=== PATIENT | male | born 1955 | race Caucasian/White ===

== ENCOUNTER → 2019-05-03 | Day surgery (SDC) | payer BC ==
[2019-04-30 15:43] VITALS: BMI 29.4
[~2019-05-03] MED LIST: Lidocaine 1% PF 5 ML VIAL ONE; PROPOFOL 20 ML ONE; PROPOFOL 200 MG/20 ML VIAL ONE
[2019-05-03 10:55] LABS: #Eosinphils 0.3 thou/uL (0.0-0.7); #Lymphocytes 1.2 thou/uL (1.20-3.40); #Monocytes 0.5 thou/uL (0.11-0.59); #Neutrophils 3.9 thou/uL (1.40-6.50); %Basophils 0.8 % (0.0-1.0); %Lymphocytes 20.5 % (21.0-51.0); %Monocytes 8.5 % (0.0-10.0); %Neutrophils 65.3 % (42.0-75.0); Hemoglobin 14.2 g/dL (14.0-18.0); Mean Corpuscular HGB CONC 34.2 g/dL (32.0-36.0); Mean Corpuscular Hemoglobin 29.8 pg (27.0-31.0); Mean Corpuscular Volume 87.2 fL (78.0-98.0); Mean Platelet Volume 7.9 fL (7.4-10.4); Platelet Count 145 thou/uL (130-400); RBC Distribution Width 12.2 % (11.5-14.5); Red Blood Cell (RBC) Count 4.75 mill/uL (4.70-6.10)
[2019-05-03 11:02] LABS: PTT 25.9 SEC (22.9-36.1); Prothrombin Time 13.5 SEC (12.0-14.7)
[2019-05-03 11:16] LABS: Anion Gap 15 mmol/L (10-20); BUN (Urea Nitrogen) 13 mg/dL (8.4-25.7); Calc. Creatinine Clearance 96 mL/min (70-130); Calcium 9.4 mg/dL (7.8-10.44); Carbon Dioxide 25 mmol/L (23-31); Chloride 105 mmol/L (98-107); Estimated GFR-MDRD 69; Glucose 132 mg/dL (80-115); Sodium 141 mmol/L (136-145)
--- NOTE | 2019-05-03 20:45 | DIS ---
DATE OF ADMISSION: 05/03/2019 DATE OF DISCHARGE: 05/03/2019 DISCHARGE DIAGNOSES: 1. Possible thromboembolism. 2. Hypercholesterolemia. 3. History of elevated LPA. 4. Patent foramen ovale. HOSPITAL COURSE: This pleasant 64-year-old gentleman presents for evaluation of erythematous swelling on his left elbow. He also has had a purplish discoloration of his toes. The patient today presented to undergo a transesophageal echocardiogram. On 05/03/2019, the patient underwent a transesophageal echocardiogram, was found to have normal left systolic function. There were normal mitral aortic valves. There were mild mitral regurgitation and tricuspid regurgitation. No thrombus was noted in the left atrium and left atrial appendage or left ventricular apex. A PFO was noted by color Doppler and contrast bubble exam. Atherosclerotic debris was noted in the descending aorta. The patient was found to have a PFO. There was no evidence of vegetations or other structural abnormalities. The patient will follow up with Dr. Corbett. DISCHARGE MEDICATIONS: 1. Alprazolam 0.5 a day. 2. Aspirin 325 daily. 3. Lipitor 40 at bedtime. 4. Seroquel 2 tablets at bedtime. 5. Sertraline 200 daily. 6. Zolpidem 10 mg at bedtime. 7. Venlafaxine 225 mg daily. Job ID: [id number] [facility], [place]
--- NOTE | 2019-05-04 09:52 | OP ---
DATE OF PROCEDURE: 05/03/2019 PROCEDURE PERFORMED: Transesophageal echo. INDICATION: A 64-year-old gentleman with history of thromboembolism. The patient was taken to the PACU. The patient was sedated by Anesthesiology. A transesophageal probe was placed into the distal esophagus and stomach. Echocardiographic images were obtained. The transesophageal probe was removed. FINDINGS: 1. Normal left ventricular systolic function. 2. Normal mitral and aortic valves. 3. Mild mitral regurgitation. 4. Mild tricuspid regurgitation. 5. No thrombus noted in the left atrial appendage. 6. A PFO was noted by color Doppler and contrast bubble exam. 7. Atherosclerotic debris in the descending aorta. IMPRESSION: Patent foramen ovale. Job ID: [id number] [facility]
== END ==
LOC: CCL 10:03
PROVIDERS: ATTEND Internal Medicine Cardiovascular Disease
PROC: B245ZZ4 Ultrasonography of Left Heart, Transesophageal (ICD-10-PCS; principal; 2019-05-03)
DX: M79.645 Pain in left finger(s) (principal); M79.89 Other specified soft tissue disorders; I10 Essential (primary) hypertension; E78.00 Pure hypercholesterolemia, unspecified; E78.5 Hyperlipidemia, unspecified; F32.9 Major depressive disorder, single episode, unspecified; I08.1 Rheumatic disorders of both mitral and tricuspid valves; Q21.1 Atrial septal defect; Z79.82 Long term (current) use of aspirin; Z79.899 Other long term (current) drug therapy
CPT/HCPCS: 36415; 80048; 85025; 85610; 85730; 93312; J2001; J2704